=== PATIENT | male | born 1990 | race Caucasian/White ===

== ENCOUNTER 2020-11-18 00:28 | Emergency (ER) | payer OTHER ==
[2020-11-18 01:20] LABS: BASOPHIL 0.3 % (0-2); BILIRUBIN NEGATIVE (NEGATIVE); BLOOD NEGATIVE Ery/uL (NEGATIVE); CLARITY CLEAR (CLEAR); COLOR YELLOW (YELLOW); EOSINOPHIL 1.4 % (0-5); GLUCOSE (U) NORMAL (NORMAL); HCT 39.4 % (42.0-52.0); HGB 13.9 g/dl (13.2-18.0); LEUKOCYTES NEGATIVE Leu/uL (NEGATIVE); LYMPHOCYTE 22.4 % (15-48); MCHC 35.3 g/dL (32.0-36.0); MCV 82.3 fL (78.0-100.0); MONOCYTE 6.9 % (0-12); MPV 8.9 fL (6.0-9.5); NEUTROPHIL 68.7 % (41-80); NITRITE NEGATIVE (NEGATIVE); NRBC 0; PLT 195 K/uL (150-400); PROTEIN NEGATIVE (NEGATIVE); RBC 4.79 M/uL (4.70-6.00); RDW 11.8 % (11.5-14.0); SPECIFIC GRAVITY <=1.005 (1.001-1.030); UROBILINOGEN 0.2 mg/dL (0.2-1.0); WBC 6.6 K/uL (4.0-10.5)
[2020-11-18 01:26] LABS: AMPHETAMINES NEGATIVE (NEGATIVE); BARBITURATES NEGATIVE (NEGATIVE); ECSTASY (MDMA) NEGATIVE (NEGATIVE); MARIJUANA (THC) NEGATIVE (NEGATIVE); METHADONE NEGATIVE (NEGATIVE); OPIATES NEGATIVE (NEGATIVE); OXYCODONE NEGATIVE (NEGATIVE)
[2020-11-18 03:10] LABS: BUN/CREAT RATIO (CALC) 15.7 RATIO; CREATININE 0.89 mg/dL (0.67-1.17)
== END 2020-11-18 03:15 | disposition home or self-care (01) ==
LOC: FER 00:28
PROVIDERS: Emergency Medicine
DX: F41.0 Panic disorder [episodic paroxysmal anxiety] (principal); R07.89 Other chest pain
CPT/HCPCS: 36415; 71045; 80048; 80305; 81003; 84484; 85025; 93005

== ENCOUNTER 2020-11-21 22:06 | Emergency (ER) | payer OTHER ==
[2020-11-22] MEDS ORDERED: ATARAX25 MG PO (11:33)
== END 2020-11-21 22:44 | disposition left against medical advice (07) ==
LOC: FER 22:06
DX: R53.1 Weakness (principal); R11.10 Vomiting, unspecified; R42 Dizziness and giddiness; Z53.8 Procedure and treatment not carried out for other reasons

== ENCOUNTER 2020-11-22 10:01 | Emergency (ER) | payer OTHER ==
[2020-11-22] MEDS ORDERED: ATARAX25 MG PO (11:33)
== END 2020-11-22 11:47 | disposition home or self-care (01) ==
LOC: FER 10:01
DX: F41.9 Anxiety disorder, unspecified (principal); K80.80 Other cholelithiasis without obstruction; Z87.891 Personal history of nicotine dependence
CPT/HCPCS: 93005

== ENCOUNTER 2020-12-20 20:25 | Emergency (ER) | payer OTHER ==
[~2020-12-20 20:25] MED LIST: ATARAX25 MG PO
[2020-12-20 21:08] LABS: BASOPHIL 0.3 % (0-2); EOSINOPHIL 1.2 % (0-5); HCT 41.5 % (42.0-52.0); HGB 14.8 g/dl (13.2-18.0); LYMPHOCYTE 25.4 % (15-48); MCH 29.2 pg (25.0-31.0); MCHC 35.7 g/dL (32.0-36.0); MONOCYTE 6.7 % (0-12); NEUTROPHIL 66.3 % (41-80); NRBC 0; PLT 234 K/uL (150-400); RBC 5.06 M/uL (4.70-6.00); RDW 11.5 % (11.5-14.0); WBC 6.7 K/uL (4.0-10.5)
[2020-12-20 21:12] LABS: INR 1.13 (0.9-1.2); PROTHROMBIN TIME 13.8 SECONDS (11.4-13.6); PTT 29.8 SECONDS (22.2-34.7)
[2020-12-20 21:50] LABS: AMPHETAMINES NEGATIVE (NEGATIVE); BARBITURATES NEGATIVE (NEGATIVE); ECSTASY (MDMA) NEGATIVE (NEGATIVE); MARIJUANA (THC) NEGATIVE (NEGATIVE); METHADONE NEGATIVE (NEGATIVE); OPIATES NEGATIVE (NEGATIVE); OXYCODONE NEGATIVE (NEGATIVE)
== END 2020-12-20 23:52 | disposition home or self-care (01) ==
LOC: FER 20:25
PROVIDERS: Nurse Practitioner Family
DX: R07.89 Other chest pain (principal); R53.83 Other fatigue; Z86.19 Personal history of other infectious and parasitic diseases
CPT/HCPCS: 36415; 71045; 80305; 83735; 84484; 85025; 85610; 85730; 93005; J7030